=== PATIENT | female | born 1955 | race African-American/Black ===

== ENCOUNTER 2017-06-05 06:17 | Day surgery (SDC) | payer OTHER ==
[~2017-06-05] VITALS: Ht 170.2 cm; Wt 78.2 kg
[~2017-06-05 06:17] MED LIST: CALC-1194 PO; CARV3 PO; CYCL10 PO; GABA-531 PO; NORT10 PO; SODIUM CHLORIDE 0.9% 1,000 ML IV ONE; VITAD50000 PO
[2017-06-05] MEDS ORDERED: BENZOCAINE 20% 50 MCG/SPRAY 57 GM TP ONE (06:18)
[2017-06-05] MEDS ORDERED: ALBUTEROL SULFATE 2.5 MG/0.5 ML NEB SOLUTION NEB ONE (06:18)
[2017-06-05] MEDS ORDERED: LIDOCAINE HCL 4% 50 ML SOLUTION TP ONE (06:18)
[2017-06-05] MEDS ORDERED: LIDOCAINE HCL 2% 30 ML JELLY TP ONE (06:18)
[2017-06-05] MEDS ORDERED: SODIUM CHLORIDE 0.9% 1,000 ML IV ONE (06:28)
[2017-06-05] MEDS ORDERED: MIDAZOLAM HCL 2 MG/2 ML VIAL ONE (07:06)
[2017-06-05] MEDS ORDERED: FentaNYL CITRATE-PF 100 MCG/2 ML VIAL ONE (07:06)
[2017-06-05] MEDS ORDERED: MethylPREDNISolone SOD SUCC 125 MG/2 ML VIAL IVP ONE (08:45)
[2017-06-05] MEDS ORDERED: MethylPREDNISolone SOD SUCC 125 MG/2 ML VIAL ONE (09:16)
[2017-06-05] MEDS ORDERED: OXYGEN THERAPY IH SCH (20:00)
== END 2017-06-05 10:25 | disposition home or self-care (01) ==
LOC: SURGERY 06:17
PROVIDERS: ATTEND Internal Medicine Critical Care Medicine
DX: J38.4 Edema of larynx (principal); B37.0 Candidal stomatitis; M54.9 Dorsalgia, unspecified; Z88.8 Allergy status to other drugs, medicaments and biological substances; Z98.890 Other specified postprocedural states
CPT/HCPCS: 31623; 31624; 71010; 87015 ×2; 87070; 87101; 87147; 87205; 87220; 88108; 88312; J2250; J2930; J3010; J7030